=== PATIENT | female | born 1935 | race Caucasian/White ===

== ENCOUNTER 2016-07-08 15:44 | Inpatient (IN) ==
[2016-07-08] MEDS ORDERED: ZOFRAN IV ONE (16:03)
--- NOTE | 2016-07-08 16:08 | PROVIDER DOCUMENTATION ---
HPI-Neurological Disorder - General Stated Complaint: WEAKNESS/CONFUSION Time Seen by Provider: 07/08/16 16:01 Allergies/Adverse Reactions: Patient Allergies Allergy/AdvReac Type Severity Reaction Status Date / Time No Known Allergies Allergy Verified 07/08/16 16:33 Home Medications: Home Medication List Medication Instructions Recorded Confirmed Last Taken Type Levothyroxine [Synthroid] 75 microgm PO DAILY 08/16/13 07/08/16 07/08/16 History Aspirin [Aspirin EC] 81 mg PO DAILY 09/01/15 07/08/16 07/08/16 History Multivitamin [Multivitamins] 1 each PO DAILY 09/01/15 07/08/16 07/08/16 History - History of Present Illness-Neuro Nature of Presenting Problem: 81 y/o WF BIB EMS for altered mental status. She was at [facility], and did not know where she was. She is very tearful on exam. Oriented to person and place. Cannot remember her birthday, month. Can recognize family in the room, responds "Dr. Dias" to president. She states she feels nauseated, but denies headache, changes in vision or blurry vision. Denies history of AFib or previous stroke. States she feels generalized weakness, and is having a hard time answering questions. She is very tearful. Review of Systems - Adult - REVIEW OF SYSTEMS - ADULT ROS:: limited per condition Constitutional: reports: no symptoms reported. denies: chills, fever, fatique Eyes: reports: no symptoms reported. denies: decreased vision, blurred vision, double vision, eye pain Ears, Nose, Mouth & Throat: reports: no symptoms reported. denies: ear pain, nose pain, throat pain Cardiovascular: reports: no symptoms reported. denies: chest pain, irregular heart rate, palpitations Respiratory: reports: no symptoms reported. denies: cough, shortness of breath , wheezing Gastrointestinal: reports: see HPI, nausea. denies: abdominal pain, diarrhea, vomiting Genitourinary: reports: no symptoms reported. denies: dysuria, discharge, frequency, incontinence Musculoskeletal: reports: see HPI, muscle weakness. denies: bone pain, back pain, muscle aches Integumentary: reports: no symptoms reported. denies: rash Neurological: reports: no symptoms reported. denies: ataxia, dizziness/vertigo , headache/migraines Psychiatric: reports: no symptoms reported Endocrine: reports: no symptoms reported Hematologic/Lymphatic: reports: no symptoms reported Allergic/Immunologic: reports: no symptoms reported All Other Systems: Reviewed and Negative Past History - Adult - PAST MEDICAL HISTORY-ADULT Review of Records: reports: Old Records Reviewed, Nursing Assessment Review, Medications Reviewed, Social history reviewed & non-contributory. Major Childhood Illnesses: reports: denies history Cardiovascular: reports: denies history Respiratory: reports: denies history Gastrointestinal: reports: denies history Obstetrical/Gynecological: reports: denies history Genitourinary: reports: denies history Musculoskeletal: reports: denies history Neurological: reports: denies history Endocrine/Immune: reports: thyroid disorder Other Conditions: reports: denies history - IMMUNIZATION STATUS Childhood Immunizations: See Nurse Assessment Flu Vaccine: See Nurse Assessment - FAMILY HISTORY Family History: reviewed, not pertinent - SOCIAL HISTORY Smoking: denies Substance Use: none/never Alcohol Use Frequency: never Physical Exam- Neurological - Physical Exam-Neuro Initial Vital Signs Reviewed: Yes General Appearance: appears well, alert, no apparent distress Eye Exam: bilateral eye: normal inspection, PERRL, EOMI HENMT: normocephalic/atraumatic, moist mucous membranes, normal ENT inspection, other (no facial droop) Head Injury: no evidence of injury Neck: non-tender, full range of motion, supple, normal inspection. negative: lymphadenopathy Respiratory: chest non-tender, lungs clear, normal breath sounds, no pleuratic chest pain, no respiratory distress, no accessory muscle use. 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 Exam: normal hearing, normal speech, PERRL Motor/Sensory: no sensory deficit Neurologic: grossly normal, no motor/sensory deficits Integumentary: normal color, normal turgor, warm/dry Psych/Mental Status: normal mood/affect, anxious, tearful - Glascow Coma Scale Best Eye Response: (4) open spontaneously Best Verbal Response: (5) oriented Best Motor Response: (6) obeys commands Progress - PLAN OF CARE/RESULTS Progress/Plan/Lab Results: Vital Signs - 8 hr 07/08/16 16:27 Temperature 97.8 F Pulse Rate 70 Respiratory Rate 20 Blood Pressure 165/82 O2 Sat by Pulse Oximetry 97 Laboratory Results - last 24 hr 07/08/16 07/08/16 07/08/16 16:29 16:29 16:29 WBC 6.01 RBC 4.27 Hgb 13.1 Hct 38.9 MCV 91.1 MCH 30.7 MCHC 33.7 RDW Std Deviation 12.2 Plt Count 282 MPV 9.9 Immature Gran % (Auto) 0.0 Neut % (Auto) 50.9 Lymph % (Auto) 33.8 [place] % (Auto) 8.5 Eos % (Auto) 6.0 Baso % (Auto) 0.8 Immature Gran # (Auto) 0.00 Neut # (Auto) 3.06 Lymph # (Auto) 2.03 [place] # (Auto) 0.51 Eos # (Auto) 0.36 Baso # (Auto) 0.05 PT 10.0 INR 0.96 PTT (Actin FS) 22.9 Sodium 143 Potassium 3.9 Chloride 105 Carbon Dioxide 23 L Anion Gap 15 BUN 15 Creatinine 0.9 Estimated GFR/1.73 m2 60 BUN/Creatinine Ratio 17 Glucose 93 Calculated Osmolality 286 Calcium 9.1 Total Bilirubin 0.13 L AST 21 ALT 17 Alkaline Phosphatase 82 Troponin T Total Protein 7.5 Albumin 4.0 Globulin 3.5 Albumin/Globulin Ratio 1.1 Urine Source Urine Color Urine Turbidity Urine pH Ur Specific [place] Urine Protein Ur Glucose (Stick) Ur Ketones (Stick) Urine Blood Urine Nitrite Urine Bilirubin Urobilinogen Dipstick Urine Leukocytes Urine WBC (Auto) Urine RBC (Auto) U Epithel Cells (Auto) Urine Bacteria (Auto) Urine Opiates Screen Ur Oxycodone Screen Ur Methadone, Qual Ur Barbiturates Screen Ur Phencyclidine Scrn Ur Amphetamines Screen U Benzodiazepines Scrn Urine Cocaine Screen U Cannabinoids Screen 07/08/16 07/08/16 07/08/16 16:29 16:56 16:56 WBC RBC Hgb Hct MCV MCH MCHC RDW Std Deviation Plt Count MPV Immature Gran % (Auto) Neut % (Auto) Lymph % (Auto) [place] % (Auto) Eos % (Auto) Baso % (Auto) Immature Gran # (Auto) Neut # (Auto) Lymph # (Auto) [place] # (Auto) Eos # (Auto) Baso # (Auto) PT INR PTT (Actin FS) Sodium Potassium Chloride Carbon Dioxide Anion Gap BUN Creatinine Estimated GFR/1.73 m2 BUN/Creatinine Ratio Glucose Calculated Osmolality Calcium Total Bilirubin AST ALT Alkaline Phosphatase Troponin T < 0.010 Total Protein Albumin Globulin Albumin/Globulin Ratio Urine Source CATH Urine Color YELLOW Urine Turbidity CLEAR Urine pH 7.0 Ur Specific [place] 1.016 Urine Protein NEGATIVE Ur Glucose (Stick) NEGATIVE Ur Ketones (Stick) NEGATIVE Urine Blood NEGATIVE Urine Nitrite NEGATIVE Urine Bilirubin NEGATIVE Urobilinogen Dipstick NORMAL Urine Leukocytes NEGATIVE Urine WBC (Auto) <10 Urine RBC (Auto) <10 U Epithel Cells (Auto) <10 Urine Bacteria (Auto) NEGATIVE Urine Opiates Screen NONE DETECTED Ur Oxycodone Screen NONE DETECTED Ur Methadone, Qual NONE DETECTED Ur Barbiturates Screen NONE DETECTED Ur Phencyclidine Scrn NONE DETECTED Ur Amphetamines Screen NONE DETECTED U Benzodiazepines Scrn NONE DETECTED Urine Cocaine Screen NONE DETECTED U Cannabinoids Screen NONE DETECTED Orders Category Date Time Status Cardiac Monitoring DIRECTED Care 07/08/16 15:54 Active Finger Stick Blood Sugar (ED) DIRECTED Care 07/08/16 15:54 Active Misc. NRSG Communication Order DIRECTED Care 07/08/16 15:54 Active Saline Loc NOW Care 07/08/16 15:54 Active CHEST-PORTABLE [RAD] Stat Exams 07/08/16 15:54 Draft HEAD W/O CONTRAST [CT] Stat Exams 07/08/16 15:54 Draft CBC WITH ELECTRONIC DIFF [HEME] Stat Lab 07/08/16 16:29 Completed COMPREHENSIVE METABOLIC PANEL [CHEM] Stat Lab 07/08/16 16:29 Completed PROTIME WITH INR [COAG] Stat Lab 07/08/16 16:29 Completed PTT [COAG] Stat Lab 07/08/16 16:29 Completed TROPONIN T Stat Lab 07/08/16 16:29 Completed URINALYSIS W/POSS RFLX CULT [URINALYSIS] Stat Lab 07/08/16 16:56 Completed URINE DRUG SCREEN Stat Lab 07/08/16 16:56 Completed 0.9% Sodium Chloride Inj [Ns] 500 ml Med 07/08/16 16:36 Discontinued .ROUTE As Directed 0.9% Sodium Chloride Inj [Ns] 500 ml Med 07/08/16 16:44 Discontinued IV 999 mls/hr Ondansetron [Zofran] Med 07/08/16 16:03 Discontinued 8 mg IV NOW ONE EKG [EKG] Stat Ther 07/08/16 15:[address] Quispe to bedside. Called transfer center and will have neurology tele- stroke. Result Diagrams: 07/08/16 16:29 07/08/16 16:29 - CT/MRI 1 CT Study: Head Impression: Normal (negative per radiology) - CONSULTS/PCP/HOSPITALIST Notification #1 *Consult/PCP/Hospitalist*: Dr. Weaver, neurology at [place] Time Discussed: 16:58 Reason/Comments: Admit to Hospital with further CVA work up Consult Disposition: Admit (to [facility], not to [place].) #2 Consult: Dr. Moon, hospitalist Time Discussed: 17:54 Reason/Comments: CVA symptoms Consult Disposition: Admit Departure - Departure Time of Disposition Decision: 17:54 DIAGNOSIS: Stroke-like symptom Disposition: ADMITTED INPATIENT 09 Certified Medical Emergency: Emergent Condition: Stable Referrals and Follow-Ups: Nesha Kline MD [Primary Care Provider] - Attestation - Physician/ ANDRAE Attestation Patient care was provided by Advanced Practice Provider:: Yes Advanced Practice Provider:: Sallie Swain Advanced Practice Provider documentation review:: The Mid-level provider documentation, treatment plan and medical decision making was reviewed by the physician who agrees with all treatment and medical decision making by the MLP.
--- NOTE | 2016-07-08 16:30 | Diag Imaging Result Document ---
PROCEDURE NAME: HEAD W/O CONTRAST - 07/08/[address]: A CT dose reduction protocol was used. COMPARISON: 08/16/2013. FINDINGS: The ventricles and sulci are normal in size and contour. There is no mass, hemorrhage, or evidence of acute ischemia. The bony calvaria is intact. The visualized paranasal sinuses and mastoid air cells are clear. IMPRESSION: Negative head CT. [facility]
[2016-07-08] MEDS ORDERED: NS 500 ML ONE (16:36)
[2016-07-08 16:37] LABS: MANUAL DIFF NEEDED? NO
[2016-07-08] MEDS ORDERED: NS 500 ML IV ONE (16:44)
[2016-07-08 16:47] LABS: BASO% 0.8 % (0.0-0.8); EOS# 0.36 X1000 (0.0-0.7); HEMATOCRIT 38.9 % (37.0-47.0); HEMOGLOBIN 13.1 g/dL (12.0-16.0); LYMPH# 2.03 X1000 (1.2-3.4); LYMPH% 33.8 % (20.5-51.1); MCH 30.7 PG (27-31); MCHC 33.7 g/dL (33-37); MCV 91.1 FL (81-99); MONO# 0.51 X1000 (0.11-0.59); MONO% 8.5 % (1.7-9.3); MPV 9.9 FL (7.4-10.4); NEUT% 50.9 % (42.2-75.2); PLT 282 X1000 (130-400); RBC 4.27 XMIL (4.2-5.4)
[2016-07-08 16:53] LABS: INR 0.96; PTT 22.9 Seconds (22.0-36.0)
[2016-07-08 17:16] LABS: URINE CULTURE NEEDED? NO; URINE MICRO REVIEW NEEDED? NO; URINE SOURCE CATH
[2016-07-08 17:19] LABS: CALCIUM 9.1 mg/dL (8.8-10.2); POTASSIUM 3.9 mmol/L (3.5-5.1); TOTAL BILIRUBIN 0.13 mg/dL (0.20-1.00); TOTAL PROTEIN 7.5 g/dL (6.3-8.3)
[2016-07-08 17:23] LABS: BILIRUBIN URINE NEGATIVE (NEGATIVE); BLOOD URINE NEGATIVE (NEGATIVE); COLOR YELLOW; GLUCOSE URINE NEGATIVE (NEGATIVE); LEUKOCYTES URINE NEGATIVE (NEGATIVE); NITRITE URINE NEGATIVE (NEGATIVE); PROTEIN URINE NEGATIVE (NEGATIVE); SP GRAVITY URINE 1.016; TURBIDITY URINE CLEAR (CLEAR); UR EPITHELIAL CELLS <10 /HPF (<10); URINE BACTERIA NEGATIVE /HPF; URINE RBC <10 /HPF (<10); URINE WBC <10 /HPF (<10); UROBILINOGEN URINE NORMAL (NORMAL)
--- NOTE | 2016-07-08 17:24 | Diag Imaging Result Document ---
PROCEDURE NAME: CHEST-PORTABLE - 07/08/2016 PORTABLE CHEST: COMPARISON: 10/06/2015. FINDINGS: The lungs are normally expanded and clear. Heart size and mediastinal contours are normal. No pneumothorax or pleural effusion. IMPRESSION: Negative exam.
[2016-07-08 17:39] LABS: UR AMPHETAMINES QUAL NONE DETECTED (NONE DETECT); UR BARBITUATES QUAL NONE DETECTED (NONE DETECT); UR BENZODIAZEPIN QUAL NONE DETECTED (NONE DETECT); UR CANNABINOIDS QUAL NONE DETECTED (NONE DETECT); UR COCAINE QUAL NONE DETECTED (NONE DETECT); UR METHADONE QUAL NONE DETECTED (NONE DETECT); UR OPIATES QUAL NONE DETECTED (NONE DETECT); UR OXYCODONE QUAL NONE DETECTED (NONE DETECT); UR PCP QUAL NONE DETECTED (NONE DETECT)
--- NOTE | 2016-07-08 19:04 | HISTORY AND PHYSICAL ---
DATE: 07/08/2016 PCP: Dr. Nesha Kline. PRESENTING COMPLAINT: Confused. HISTORY OF PRESENTING COMPLAINT: Ms Liu is a 81-year-old female , history of hypothyroidism on Synthroid who was brought in to the emergency department after an episode of being confused. She came in via EMS. According to Ms. Liu she woke up this morning she was fine. She went to the supermarket in [place] to get some food products for [employer]. During her shopping she felt that she was getting sick but then she was getting sick and weaker. However she said she did not pay it any mind. She paid her purchasing and was leaving and she felt so weak that she had to sit down and that was just the end of it. She did not realize or she just blacked out, did not know what happened next. The next thing she remembered was that she was in the ambulance but she was still confused. She was brought in to the Emergency Department. This took about 30 minutes since the onset of her issue until she came to the hospital. According to the 2 sons who were there even when the patient came into the hospital she was still confused and very tearful. Ms Liu denies any chest pain or palpitation prior to the event, denies any urine incontinence or fecal incontinence during the episode. She however did say she became slightly nauseated and mild headaches after the episode and she became generally weak after the episode. Of note this is the 2nd time a similar incident happening to Ms Liu about 3 years ago. 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 PAST SURGICAL HISTORY: 1. Appendectomy. 2. Hysterectomy. 3. Bilateral knee surgeries. FAMILY HISTORY: Unremarkable. ALLERGIES: None. PRIMARY CARE DOCTOR: Dr. Kline. SOCIAL HISTORY: The patient is a lives by herself, pretty much very functional, drives herself around. Smoked for about 19 years but stopped in 1972. Denies any alcohol. REVIEW OF SYSTEMS: Fourteen point review of system conducted with the patient is unremarkable except what we have in the HPI. OBJECTIVE: Vital signs: Blood pressure is 165/82, pulse of 70, respirations 20 , temperature 97.8 degrees. General: Ms. Liu is a 81-year-old female. She was in bed. She did not seem to be in any distress. HEENT: Mucosa is pink and moist. Anicteric. Acyanotic. Neck: Supple. Chest: Good air entry bilateral. No crepitations. No rhonchi. There is no any accessory muscle use. Cardiovascular: Regular rate and rhythm. No murmurs, no rubs. No gallops. Abdomen: Soft, nontender. There is no any hepatosplenomegaly. Bowel sounds are present. Extremities: No pedal edema and distal pulses are present. 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 She is oriented. Executive function seems to be intact. Patient is oriented to person, to place and to time. Cerebellar function seems to be intact. Cranial nerves 2-12 have been grossly examined and they are intact. Power is about 4/5 in all extremities. Sensation is intact and reflexes are also normal. Psychiatric: Patient has good judgment and insight. LABORATORY DATA: WBC 6.01, hemoglobin is 13.1, platelet count of 282,000. Chemistry. Sodium is 143, potassium is 3.9, chloride is 105, bicarb is 23, BUN is 15, creatinine 0.9. A chest x-ray post presentation showed negative exams, lungs are expanded very well. CT scan of the head shows ventricular and sulci normal in size and contour, no masses, no hemorrhage, no evidence of acute ischemia. The bony calvaria is intact. Impression is negative CT scan of the head. ASSESSMENT: Ms. Liu is a 81-year-old female who seems to have suffered an episode of syncope with prolonged period of amnesia was brought in for further evaluation. 1. Transient global Amnesia. The etiology is unclear. Currently patient seems to be okay. Of note patient did have prolonged period of postictal weakness, unsure if this was any seizures. 2. Syncope with prolonged recovery time. This is concerning for complicated syncope and seizure will need to be ruled out and also this is about the 2nd time it has happened to the patient. We will therefore admit the patient and do an MRI of the brain and do an EEG and get neurology to see the patient. 3. Hypertension. Patient presented with a blood pressure of 165/82. According to her the 1st time this happened as well she could hear that the paramedics said her blood pressure was high. However normally, she said her blood pressure seems to be pretty fine. I am not quite sure if this is just episodic elevation in blood pressure that causes acute hypertensive encephalopathy. Will be tracking her blood pressures here in the hospital. 4. Mild dehydration. Will give the patient a gentle hydration and recheck on her in the morning. PLAN: So in general going to admit Ms Liu to medical floor with telemetry and monitor the heart closely. We are going to repeat her EKG in the morning since I did see some PVCs with a little prolonged QT. We are going to do an echocardiogram, will do an MRI of the brain on Sunday and will get Neurology to see her during the hospital course. Will also do an EEG to rule out any abnormal cortical signal. cc: Brien Moon MD MTDD
[2016-07-08] MEDS ORDERED: TYLENOL ONE (19:27)
[2016-07-08] MEDS ORDERED: TYLENOL PO ONE (19:36)
[2016-07-08] MEDS: LOVENOX SUBQ SCH (19:38)
[2016-07-08] MEDS: NS 1,000 ML IV SCH (23:34)
[2016-07-09] MEDS: TYLENOL PO PRN ×2 (04:13→11:07)
[2016-07-09 07:00] LABS: MANUAL DIFF NEEDED? NO
[2016-07-09 07:14] LABS: BASO% 0.5 % (0.0-0.8); EOS% 6.7 % (0.0-10.0); HEMATOCRIT 36.7 % (37.0-47.0); HEMOGLOBIN 12.2 g/dL (12.0-16.0); LYMPH# 1.69 X1000 (1.2-3.4); LYMPH% 28.3 % (20.5-51.1); MCH 30.5 PG (27-31); MCHC 33.2 g/dL (33-37); MCV 91.8 FL (81-99); MONO# 0.46 X1000 (0.11-0.59); MONO% 7.7 % (1.7-9.3); MPV 9.8 FL (7.4-10.4); NEUT% 56.8 % (42.2-75.2); PLT 234 X1000 (130-400)
[2016-07-09 07:37] LABS: PROTIME 10.5 Seconds (9.2-11.7)
[2016-07-09 07:47] LABS: AGAP 10; ALBUMIN 3.7 g/dL (3.5-5.0); ALKALINE PHOSPHATASE 70 U/L (32-104); BUN 13 mg/dL (8-22); CALCIUM 8.4 mg/dL (8.8-10.2); CHLORIDE 108 mmol/L (98-107); COSMO 280; GOT 21 U/L (10-30); GPT 15 U/L (10-36); POTASSIUM 4.8 mmol/L (3.5-5.1); SODIUM 141 mmol/L (136-145); TCO2 23 mmol/L (25-35); TOTAL BILIRUBIN 0.36 mg/dL (0.20-1.00); TOTAL PROTEIN 6.2 g/dL (6.3-8.3)
[2016-07-09] MEDS: THERA M PLUS PO SCH (11:06)
[2016-07-09] MEDS: ASPIRIN EC PO SCH (11:06)
[2016-07-09] MEDS: SYNTHROID PO SCH (11:06)
[2016-07-09] MEDS: NS 1,000 ML IV SCH (11:06)
--- NOTE | 2016-07-09 11:32 | PROGRESS NOTE ---
DATE: 07/09/2016 SUBJECTIVE: Today Ms. Liu refers to be doing a little better. She feels still weak and she has this right occipital headache since yesterday. It has improved slightly with acetaminophen. OBJECTIVE: Vital signs: Blood pressure is 142/72, pulse is 66, respirations 16 , temperature 97.5 degrees. General: Ms. Liu is a 81-year-old female. She is in bed, does not seem to be in any distress. HEENT: Mucosa is pink and moist. Anicteric. Acyanotic. Neck: Supple. Chest: Good air entry bilaterally. No crepitations. No rhonchi. Cardiovascular: Regular rate and rhythm. Abdomen: Soft, nontender. Extremities: No pedal edema. 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 There is no focal neurological deficit. LABORATORY DATA: WBC is 5.97, hemoglobin is 12.3, platelet count is 234,000. Chemistry: Sodium is 141, potassium is 4.8, chloride is 108, bicarb is 23, glucose is 81. Liver function is fine. TSH is 3.59. ASSESSMENT: 1. Transient episode of global amnesia. This seems to have resolved. Etiology is not apparently clear. Initial CT scan is negative. The patient is pending MRI for better imaging. 2. Syncope with prolonged recovery time. This is about the 2nd time it has happened to the patient. There is concerning for seizures. We are pending neurology evaluation. Patient also has an EEG pending. 3. Hypertension. This seems to be episodic. 4. Mild dehydration, improving. 5. Headaches. I think this is more tension related. However, we will do the MRI to see if there is any organic cause. 6. Hypothyroid: continue with Synthroid. PLAN: So, Ms. Liu today is relatively stable. We are pending the MRI, EEG , and echo for tomorrow. We will get physical therapy to work with her. We encouraged her to sit up in the chair at least twice per day. Hopefully if everything is okay by tomorrow we might be able to let her go home. Her telemetry reading has been unremarkable. cc: MD MIN Morrell
--- NOTE | 2016-07-09 14:58 | ECHO REPORT ---
ORDER DATE: 07/09/2016 INDICATION: Confusion, weakness. FINDINGS: 1. Right atrium appears normal in size at 3.3 cm. 2. Mild tricuspid regurgitation. RV systolic pressure of 32. 3. Normal RV size and systolic function. 4. No significant pulmonic insufficiency. 5. Normal left atrial size at 3.9 cm. 6. No mitral valve prolapse. Trace mitral regurgitation. 7. Normal LV size, end-diastolic dimension of 4.6. Mild left ventricular hypertrophy with a posterior and interventricular septal wall thickness 1 and 1.2 cm respectively. Normal LV systolic function. Estimated EF of 60-65% with normal wall motion. 8. The aortic valve opens well, appears trileaflet. There is no evidence of stenosis or insufficiency. 9. The aorta appears normal in visualized segments. 10. No pericardial effusion seen. cc: MD Brien Kirkland MD
--- NOTE | 2016-07-09 18:58 | CONSULTATION ---
DATE OF CONSULTATION: 07/09/2016 PATIENT LOCATION: Room 377B. HISTORY OF PRESENT ILLNESS: Ms. Liu is 81 years old and she had an episode of memory gap with possible associated altered awareness yesterday. History from the patient is that she remembers very clearly shopping in a store, having a sense of "weak all over" feeling, and she completed her shopping. She exited the store and sat down on a bench. She remembers feeling dizzy. She remembers people checking on her. She believes some time passed that she cannot account for. Store personnel or bystander summoned an ambulance. She does not have clear memory of the ambulance arriving. She does remember being in the ambulance, transported to the hospital. She has not had any further memory gap. There was never a definite focal neurologic feature. She did not lose bowel or bladder control. She does not believe onlookers reported rigidity or muscle jerking movement. She feels completely recovered now. She had a somewhat similar spell about 3 years ago. This also occurred when she was shopping. She remembers feeling weak in a store, sitting down on some bags of charcoal, and then store personnel summoned medical help. She was in this hospital. I have not seen those records but I will check on that. She believes that episode was determined to be due to elevated blood pressure. Recently, she has not made any medication changes. She denies illicit drug use. She does not drink alcohol. She had a childhood head injury but no more recent head injury. She has never had diagnosed stroke. There is no history of seizure. Workup here included noncontrast CT of the head reported unremarkable. PHYSICAL EXAMINATION: On exam, she is awake, alert, attentive. Speech is not dysarthric. Language function is intact. Memory, except for the events of the episode yesterday, is intact. She is completely oriented. Speech is not dysarthric. Strength is normal in the arms and legs. She did well on [id number] testing. Sensation is intact to pinprick and light touch testing over the hands and feet. Proprioception is normal. I did not test her gait. Reflexes are 1+ at the knees, trace at the ankles, 1+ at the wrists symmetrically. Plantar response is silent bilaterally. IMPRESSION: Memory gap, preceding dizziness, sense of weak all over. I do not have a definite explanation for this episode. I will review the hospital record more carefully to see if she had elevated blood pressure responsible for the episode 3 years ago and to see if that might explain the current episode. Episode does not sound like transient global amnesia based on her report. We typically do not see altered awareness with that phenomenon. History to me was provided solely by the patient. There may be some errors there and history from others may be more consistent with transient global amnesia. I do not see evidence of ischemic infarction, increased intracranial pressure, mass. Negative CT is reassuring. I do not have any urgent suggestion today. I will review old records and await the results of other workup as already ordered. Thanks for asking me to see Ms. Liu. cc: Almaz Grove III, MD MTDD
[2016-07-09] MEDS: LOVENOX SUBQ SCH (19:08)
[2016-07-10] MEDS: NS 1,000 ML IV SCH ×2 (02:22→02:24)
[2016-07-10] MEDS: SYNTHROID PO SCH (06:23)
[2016-07-10] MEDS: TYLENOL PO PRN ×2 (06:58→17:18)
[2016-07-10] MEDS: THERA M PLUS PO SCH (09:25)
[2016-07-10] MEDS: ASPIRIN EC PO SCH (09:26)
--- NOTE | 2016-07-10 10:54 | Diag Imaging Result Document ---
PROCEDURE NAME: MRI BRAIN W/O CONTRAST - 07/10/2016 MRI OF THE BRAIN: FINDINGS: There is at least 1 small ovoid area of increased T2-weighted signal intensity in the right preston radiata region. There is some iron deposition in the globus pallidus bilaterally. There is no evidence of diffusion restriction. IMPRESSION: No evidence of acute disease. Minimal chronic microvascular disease.
--- NOTE | 2016-07-10 13:02 | PROGRESS NOTE ---
DATE: 07/10/2016 SUBJECTIVE: Today, Ms. Liu refers to be doing fine. She does not have anymore memory problem. She has not passed out. She feels at her baseline. OBJECTIVE: Vital Signs: Blood pressure is 140/73, pulse of 62, respirations 20 , temperature is 98.1 degrees. General: Ms. Liu is a 81-year-old female. She was in bed and eating her lunch. She did not seem to be in any distress. HEENT: Mucosa is pink and moist. Anicteric. Acyanotic. Neck is supple. Chest was clear. Cardiovascular: Regular rate and rhythm. Abdomen soft, nontender. Extremities: No pedal edema. LABEL PINKER: The patient is alert, oriented, and does not have any focal neurological deficit. LABORATORY DATA AND DIAGNOSTIC DATA: None for today. An MRI of the brain shows no evidence of acute disease. Minimal chronic vascular disease. An echocardiogram which was done showed a normal ejection fraction with normal wall motion, and there is no wall abnormality. ASSESSMENT: 1. Transient episode of global amnesia. This seems to have resolved. An MRI is completely unremarkable. The patient is pending EEG to rule out possibility of seizures. 2. Syncope with prolonged recovery time. This is about the second time it has happened to the patient. According to the patient, before she came in, she was also having an episode whereby she would be excessively fatigued after a little bit of exertion, and I am kind of concerned if she has any cardiac arrhythmias that have not been picked up. I will consult Cardiology to evaluate her and decide if they would want to do event monitoring on her. 3. Hypertension. This is very episodic, and it seems to be related to the episode where she sustained this blackout. Unsure if it is the cause of the syncope. I would do aldosterone/ renin and metanephrine level just to make sure it is not episodic hypertension from a secondary cause. 4. Dehydration, improved. 5. Headaches, resolved. 6. Hypothyroidism. Will continue with Synthroid. So, in general, I think Ms. Liu is back to her baseline from a neurological standpoint. Her blood pressures are relatively stable as well. I will do basic workup for secondary hypertension and get cardiology to evaluate her for syncope, specifically to address the need for an event recorder. If the patient's EEG is normal and Cardiology recommends outpatient followup, we will be able to discharge the patient today. cc: Brien Moon MD MTDD
--- NOTE | 2016-07-10 14:57 | CONSULTATION ---
DATE OF CONSULTATION: 07/10/2016 HPI: Ms Talia Liu is a 81-year-old lady. Cardiology was consulted to rule out cardiac etiology of amnesia. A 81-year-old lady who had a memory lapse and possible altered awareness yesterday before coming into the hospital. From a cardiac standpoint she says she did not fall unconscious. She does not remember what happened. She denies chest pain suggestive of angina. Preceding this event she did not perceive any palpitations. She was subsequently brought to the emergency room, was admitted. She does not complain of any focal weakness to suggest a CVA or obvious TIA. REVIEW OF SYSTEMS: 14-point review of systems was done.GI: There is no history of nausea, vomiting, or diarrhea. There is no history of hematemesis or melena. Central nervous system: No focal weakness to suggest a CVA or TIA. She had a similar episode about 3 years back that occurred while she was shopping then. Genitourinary System: There is no dysuria or hematuria. PAST MEDICAL HISTORY: Hypothyroidism, depression, headache, minimal carotid disease. Last cardiac catheterization 2013. Left main was normal. LAD normal, circumflex nondominant, RCA is dominant, normal ejection fraction. CURRENT MEDICATIONS: Include aspirin 81 mg a day, Lovenox, levothyroxine. ALLERGIES: She is not known to be allergic to any medication. SOCIAL HISTORY: She does not smoke. Does not drink. PHYSICAL EXAMINATION: Vital Signs: Blood pressure was 132/66, heart rate 62, afebrile. Cardiovascular System: Normal jugular venous pressure. There is no thyromegaly. No carotid bruit. First and second heart sounds were heard. There is no S3 gallop. Respiratory System: Normal air entry. There is no crepitations and rhonchi. Abdomen: Soft, nontender. There was no guarding or rigidity. Bowel sounds were heard. Central nervous system: Alert, moving all 4 extremities, answering questions appropriately. LABORATORY EXAMINATIONS: Sodium 141, potassium 4.8, BUN 13, creatinine 0.8. ASSESSMENT AND PLAN: Ms Talia Liu is a 81-year-old lady with history of minimal carotid disease, hypothyroidism, anxiety disorder, had an episode of what seems to be global amnesia but she had a similar episode about 3 years back. Neurology has been consulted. She has had an EEG which is going to be performed and she has had a brain MRI which was unremarkable. From a cardiac standpoint, she is in sinus rhythm. Echocardiogram was unremarkable. This episode could be just very likely to be related to cardiac etiology but to make sure there is no dysrhythmias will plan for a 30-day monitoring as an outpatient and follow up in our clinic following that. She is also scheduled to undergo EEG today. Will get carotid Dopplers as well to make sure there is no progression of carotid disease. Thank you for the consult. Will follow hospital course. cc: Renan Lau MD
--- NOTE | 2016-07-10 15:53 | PROGRESS NOTE ---
DATE: 07/10/2016 Ms. Liu has not had any more episodes. Her MRI is normal. EEG is scheduled. She has cardiac workup in progress. She has not had any more episodes of altered awareness. I do not have any new suggestion today from a neurologic standpoint. Thanks for asking me to see Ms. Liu. cc: Almaz Grove III, MD
[2016-07-10] MEDS: LOVENOX SUBQ SCH (18:51)
[2016-07-11] MEDS: SYNTHROID PO SCH (06:42)
[2016-07-11 07:24] VITALS: BP 128/74
--- NOTE | 2016-07-11 08:07 | Diag Imaging Result Document ---
PROCEDURE NAME: NECK W/CONTRAST - 07/10/2016 CT OF THE NECK WITH INTRAVENOUS CONTRAST: A CT dose reduction protocol was used. COMPARISON: None. FINDINGS: The internal carotid arteries are extremely redundant bilaterally with prominent loops, right worse than left. The carotid artery systems are patent. The jugular veins are also patent. There are a normal size cervical lymph nodes bilaterally. No mass or adenopathy. The major salivary glands are normal. Sinuses are clear. Lung apices are clear. Bony structures are intact. The vertebrobasilar system is patent. There is no evidence of vascular stenosis other than the extreme redundancy of the internal carotid arteries. IMPRESSION: No acute disease. Redundancy of the internal carotid arteries bilaterally. No arterial stenosis. [facility]
[2016-07-11] MEDS: THERA M PLUS PO SCH (09:09)
[2016-07-11] MEDS: ASPIRIN EC PO SCH (09:09)
[2016-07-11] MEDS ORDERED: MIRALAX PO PRN (13:23)
--- NOTE | 2016-07-11 14:22 | PROGRESS NOTE ---
DATE: 07/11/2016 Ms. Liu is awake, alert, attentive, cheerful, appropriate, oriented. She has not had any more episodes of altered awareness, collapse, memory gap. She feels completely recovered. Her EEG was remarkably normal for age. There is no evidence of seizure or other primary [employer] explanation for her recent episode. I do not have any new suggestion from neurologic standpoint. I agree with plans for discharge. I will be glad to see Mr. Liu again if she has more episodes. Thanks for asking me to see her here. cc: Almaz Grove III, MD
--- NOTE | 2016-07-11 15:03 | EEG REPORT ---
DATE: 07/10/2016 EEG #[id number]: COMMENT: This is a digitally recorded EEG on a 81-year-old patient with recent period of altered awareness, memory gap, question of seizure. FINDINGS: During waking, medium amplitude 9-9.5 Hz posterior rhythm is present symmetrically, well sustained, and reacts normally to eye opening. Background contains polymorphic and rhythmic theta frequencies over the frontal and central regions symmetrically. Photic stimulation produced some symmetric entrainment. Drowsing occurred briefly with appearance of more generalized slowing and attenuation of the posterior rhythm. Stage 2 sleep was not recorded. No definite epileptiform discharge was identified. INTERPRETATION: Normal EEG. CORRELATION: The absence of epileptiform discharges on a single EEG does not exclude a clinical diagnosis of seizures, but there is nothing on this record to suggest a seizure as the reason for her recent episode. cc: MD Brien Broussard III, MD
--- NOTE | 2016-07-11 21:18 | DISCHARGE SUMMARY ---
ADMISSION DATE: 07/08/2016 DISCHARGE DATE: 07/11/2016 ADMISSION DIAGNOSES: 1. Transient global amnesia. 2. Syncope with prolonged recovery time. 3. Hypertension. 4. Mild dehydration. DISCHARGE DIAGNOSES: 1. Transient episode of global amnesia which has resolved. 2. Syncope with prolonged recovery time. 3. Hypertension which is very episodic and appeared to be related to the episode where she sustained her blackout. 4. Dehydration which is improved. 5. Headaches which is resolved. 6. Hypothyroidism for which Synthroid will be continued. CONSULTATIONS: 1. Cardiology - Renan Lau M.D. 2. Neurology - Almaz Grove III, M.D. PROCEDURES: EEG on 07/10/2016. Interpretation revealed normal EEG. HOSPITAL COURSE: Ms. Talia Liu is a 81-year-old, female with a history of hypothyroidism who was brought to the ER after an episode of being confused via EMS. According to her she had woke up and felt fine this morning. She had gone to the supermarket and during her shopping she felt like she was getting sick and weak. By the time she was leaving from shopping she felt so weak she had to sit down. Apparently she blacked out because she was not sure of what happened after that. The next thing she remembered was waking up in the ambulance and being confused. She presented to a hospital being confused and tearful. She denied urinary or fecal incontinence. She did state that she was nauseated and had a mild episode of headache with it. She states that she had 1 more episode like this about 3 years ago. The plan was to admit Ms. Liu to the medical floor. Her EKG did show sinus rhythm with PVCs and prolonged QTc. Further workup included EEG to rule out seizure which was a normal EEG. She did have a brain MRI on the which was negative for anything acute. She had an echocardiogram on the which showed a normal EF and normal right ventricular function. A CT of the neck was negative for any arterial stenosis. Neurology was consulted and neuro workup did not reveal anything as concerning as to whether these episodes were preceded by a hypertensive episode. Also it could have possibly been from a cardiac standpoint and Dr. Lau with Cardiology was consulted. Given that she was in sinus rhythm and her echocardiogram being normal they felt that she could benefit from a 30 day Holter monitoring and to follow up in their outpatient clinic. Reviewing her blood pressure in the hospital, the lowest of the systolic was 118 with the highest being 166. Her heart rate ranged from 62-72 in sinus. Given that she is stable it was deemed appropriate for her to be discharged home and to follow up with Cardiology as an outpatient for her 30 day cardiac monitoring. MEDICATIONS: Aspirin enteric-coated 81 mg p.o. daily, Synthroid 75 mcg p.o. daily and 1 multivitamin p.o. daily. DISCHARGE DIET: Regular. DISCHARGE ACTIVITY: As tolerated. DISCHARGE VITAL SIGNS: Temperature 97.9 degrees, heart rate 63, respiratory rate 20, blood pressure 128/74, O2 saturation 99% on room air. DISCHARGE DISPOSITION: Home. DISCHARGE INSTRUCTIONS: 1. Home with self-care. 2. Follow up with Cardiology as outpatient for her 30 day cardiac Holter monitoring. Dictated by REBECCA White for Chandrakant Patel MD cc: REBECCA White MD Ashish K. Basu, MD Bernice Swain, MD Eston G. Norwood III, MD Dr. Johnson MTDD
--- NOTE | 2016-07-14 15:41 | Carotid Study ---
DATE: 07/10/2016 PROCEDURE: Carotid duplex imaging. REFERRING PHYSICIAN: Dr. Moon INTERPRETING PHYSICIAN: Dr. Carrillo TECH: Ludin INDICATIONS: Syncope. OBSERVED DATA RIGHT LEFT Brachial Blood Pressure Carotid Pulse Bruits: Carotid/Sub DIAGRAM OF ULTRASOUND IMAGING R L RIGHT INT EXT INT EXT LEFT Sheldon (cm/s) Sheldon (cm/s) Subclavian 91/0 Subclavian 112/1 CCA Proximal 69/9 CCA Proximal 78/9 CCA Distal 58/9 CCA Distal 84/19 Bulb 50/10 Bulb 59/5 ICA Proximal 43/11 ICA Proximal 57/15 ICA Mid 105/29 ICA Mid 48/11 ICA Distal 89/29 ICA Distal 109/26 ECA 46/6 ECA 75/6 Vertebral 48/14 Vertebral 52/12 ICA/CCA Ratio 1.5 ICA/CCA Ratio 1.3 % Stenosis 0 to 39 % Stenosis 0 to 39 FINDINGS: There is non significant plaque disease in either carotid system. There is antegrade vertebral flow bilaterally. There is a heterogeneous structure at the takeoff of the internal and external carotid arteries. It appears to be extraluminal. It is complex appearing. There may be some vascular flow in it. It measures about 1.7 x 1.2 cm. PHYSICIAN INTERPRETATION: There is no significant plaque disease in either carotid system. However, there is a sonographically inconclusive mass-like area at the takeoff of the internal and external carotid arteries on the right. Further imaging with CT scan may be helpful. cc: MD Julia Klein PA
== END 2016-07-11 16:28 | disposition home or self-care (01) ==
LOC: ED 15:44 → 3N 21:00 → SUATTDRO 21:00
PROVIDERS: ATTEND Internal Medicine